=== PATIENT | male | born 1945 | race Hispanic/Latino ===

== ENCOUNTER 2017-11-29 09:40 | Inpatient (IN) | payer MEDICARE ==
[~2017-11-29 09:40] MED LIST: ALPR0.25 PO; CARV25TA77 PO; CYCL30DR OP; ESOM40CA PO; FURO40TA5 PO; LABE5VIA3 IV; LATA2.5D2 OP; LOSA100T29 PO; ONDA4AMP IJ; POTA10TA11 PO; ROSU10TA GT; ZOLP10TA2 PO
[2017-11-29] MEDS ORDERED: DEXTROSE 50%-WATER 50 ML DISP.SYRIN IV ONE ×2 (10:15→13:10)
[2017-11-29] MEDS ORDERED: DEXTROSE 10%-WATER 1,000 ML IV ONE ×2 (10:26→21:49)
[2017-11-29 10:43] LABS: BASOPHILS % (AUTO) 0.3 % (0.0-5.0); EOSINOPHILS % (AUTO) 0.8 % (0.0-8.0); HEMATOCRIT 26.7 % (42-54); MEAN CORPUSCULAR HEMOGLOBIN 32.9 pg (27.0-33.0); MEAN CORPUSCULAR HGB CONC 33.8 g/dL (32.0-36.0); MEAN CORPUSCULAR VOLUME 97.4 fL (79-99); MONOCYTES % (AUTO) 8.3 % (3.0-13.0); NEUTROPHILS % (AUTO) 75.6 % (40.0-77.0); NUCLEATED RED BLOOD CELLS 0.4 % (0.0-0.19); PLATELET COUNT (AUTO) 210 K/uL (130-400); RED BLOOD CELL COUNT(AUTO) 2.74 MIL/uL (4.50-6.20); RED CELL DISTRIBUTION WIDTH 19.9 % (11.0-15.5)
[2017-11-29 10:44] LABS: APPEARANCE,URINE Clear (CLEAR); BILIRUBIN,URINE Negative (NEGATIVE); COLOR,URINE Yellow (YELLOW); GLUCOSE, URINE (UA) Negative (NEGATIVE); KETONES,URINE Negative (NEGATIVE); LEUKOCYTE ESTERASE ,URINE Negative (NEGATIVE); NITRATE,URINE Negative (NEGATIVE); OCCULT BLOOD,URINE Negative (NEGATIVE); PROTEIN,URINE Negative (NEGATIVE); UROBILINOGEN,URINE 0.2 mg/dL (0.2-1.0)
[2017-11-29 10:53] LABS: CREATININE 2.3 mg/dL (0.5-1.5); POTASSIUM 4.2 mmol/L (3.5-5.1)
[2017-11-29 10:58] LABS: ALBUMIN 2.4 g/dL (3.5-5.0); BILIRUBIN,TOTAL 0.3 mg/dL (0.2-1.0); TOTAL PROTEIN, SERUM 5.3 g/dL (6.0-8.3)
[2017-11-29] MEDS ORDERED: SODIUM CHLORIDE 0.9% 1000ML 2,000 ML IV ONE (11:34)
[2017-11-29] MEDS ORDERED: CEFTRIAXONE SODIUM 1 GM ONE (11:34)
[2017-11-29] MEDS ORDERED: SODIUM CHLORIDE 0.9% 50 ML IV ONE (11:35)
[2017-11-29 12:47] LABS: PARTIAL THROMBOPLASTIN TIME 29.2 SEC (26.3-35.5)
[2017-11-29 12:56] LABS: INR 1.08 (0.85-1.15); PROTHROMBIN TIME 11.3 SEC (9.6-11.6)
[2017-11-29 21:30] VITALS: BP 134/84
[2017-11-29] MEDS ORDERED: DEXTROSE 10%-WATER 1,000 ML IV SCH (22:00)
[2017-11-29 23:31] VITALS: BP 116/72
[2017-11-30 03:53] VITALS: BP 134/64
[2017-11-30] MEDS ORDERED: PRED5TAB PO (04:19)
[2017-11-30] MEDS ORDERED: MULT-264 PO (04:19)
[2017-11-30] MEDS ORDERED: ASCO-360 PO (04:19)
[2017-11-30] MEDS ORDERED: ZINC220C6 PO (04:19)
[2017-11-30] MEDS ORDERED: CARV25TA PO (04:19)
[2017-11-30] MEDS ORDERED: XALA2.5OS OU (04:19)
[2017-11-30] MEDS ORDERED: TERB250T51 PO (04:19)
[2017-11-30] MEDS ORDERED: LOSA100T29 PO (04:19)
[2017-11-30] MEDS ORDERED: ASCO500T10 PO (04:19)
[2017-11-30] MEDS ORDERED: FURO40TA5 PO (04:19)
[2017-11-30] MEDS ORDERED: FERR325T22 PO (04:19)
[2017-11-30] MEDS ORDERED: ROSU10TA PO (04:19)
[2017-11-30] MEDS ORDERED: ATOR10 PO (04:19)
[2017-11-30] MEDS ORDERED: TRAM50TA4 PO (04:19)
[2017-11-30] MEDS ORDERED: ASPI-1197 PO (04:19)
[2017-11-30] MEDS ORDERED: ZINC TABLET PO (04:19)
[2017-11-30] MEDS ORDERED: ACET325T51 PO (04:19)
[2017-11-30] MEDS ORDERED: MULT-685 PO (04:19)
[2017-11-30] MEDS ORDERED: OMEP20CA10 PO (04:19)
[2017-11-30 04:30] LABS: HEMATOCRIT 23.7 % (42-54); MEAN CORPUSCULAR HGB CONC 34.3 g/dL (32.0-36.0); MEAN CORPUSCULAR VOLUME 96.2 fL (79-99); NUCLEATED RED BLOOD CELLS 0.3 % (0.0-0.19); PLATELET COUNT (AUTO) 202 K/uL (130-400); RED BLOOD CELL COUNT(AUTO) 2.46 MIL/uL (4.50-6.20); RED CELL DISTRIBUTION WIDTH 19.6 % (11.0-15.5); WHITE BLOOD COUNT (AUTO) 12.2 K/uL (4.8-10.8)
[2017-11-30] MEDS ORDERED: TRAMADOL HCL 50 MG TABLET PO PRN (04:30)
[2017-11-30] MEDS ORDERED: ACETAMINOPHEN 325 MG TAB PO PRN ×2 (04:30)
[2017-11-30 04:47] LABS: ALBUMIN 2.2 g/dL (3.5-5.0); BILIRUBIN,TOTAL 0.3 mg/dL (0.2-1.0); CREATININE 1.8 mg/dL (0.5-1.5); TOTAL PROTEIN, SERUM 4.9 g/dL (6.0-8.3)
[2017-11-30 07:00] VITALS: BP 115/57
[2017-11-30] MEDS: ASCORBIC ACID 500 MG TAB PO SCH ×2 (08:37→20:59)
[2017-11-30] MEDS: MULTIVITAMIN WITH MINERALS TABLET PO SCH (08:37)
[2017-11-30] MEDS: ASPIRIN 81MG TAB.CHEW PO SCH (08:38)
[2017-11-30] MEDS: PANTOPRAZOLE SODIUM 40 MG TABLET.DR PO SCH (08:38)
[2017-11-30] MEDS: CARVEDILOL 25 MG TABLET PO SCH ×2 (08:38→20:59)
[2017-11-30] MEDS: FUROSEMIDE 40 MG TABLET PO SCH (08:38)
[2017-11-30] MEDS: ZINC SULFATE 220 CAPSULE PO SCH (08:39)
[2017-11-30] MEDS: FERROUS SULFATE 325 MG TABLET.DR PO SCH (08:39)
[2017-11-30] MEDS ORDERED: ASCORBATE CALCIUM 500 MG PO SCH (09:00)
[2017-11-30] MEDS ORDERED: NON-FORMULARY MEDICATION 1 EACH (Rosuvastatin Calcium (Crestor) 10 MG) PO SCH (09:00)
[2017-11-30] MEDS ORDERED: PREDNISONE 5 MG TABLET PO SCH (09:00)
[2017-11-30] MEDS ORDERED: Terbinafine HCl 250 MG PO SCH (09:00)
[2017-11-30] MEDS ORDERED: ZINC PO SCH (09:00)
[2017-11-30] MEDS ORDERED: MULTIVITAMIN PO SCH (09:00)
[2017-11-30 11:19] VITALS: BP 108/52
[2017-11-30] MEDS: LOSARTAN 100 MG TABLET PO SCH (12:00)
[2017-11-30 15:46] VITALS: BP 91/48
[2017-11-30 19:52] VITALS: BP 101/51
[2017-11-30] MEDS ORDERED: ATORVASTATIN CALCIUM 10 MG TABLET PO SCH (21:00)
[2017-11-30] MEDS ORDERED: LATANOPROST 2.5 ML DROPS OU SCH (21:00)
[2017-11-30] MEDS ORDERED: ZOLPIDEM TARTRATE 5 MG TAB PO SCH (21:00)
[2017-11-30 23:53] VITALS: BP 114/57
[2017-12-01 03:55] VITALS: BP 124/59
[2017-12-01 07:00] VITALS: BP 137/66
[2017-12-01] MEDS: ZINC SULFATE 220 CAPSULE PO SCH (08:40)
[2017-12-01] MEDS: FERROUS SULFATE 325 MG TABLET.DR PO SCH (08:40)
[2017-12-01] MEDS: FUROSEMIDE 40 MG TABLET PO SCH (08:40)
[2017-12-01] MEDS: PANTOPRAZOLE SODIUM 40 MG TABLET.DR PO SCH (08:40)
[2017-12-01] MEDS: LOSARTAN 100 MG TABLET PO SCH (08:40)
[2017-12-01] MEDS: ASPIRIN 81MG TAB.CHEW PO SCH (08:40)
[2017-12-01] MEDS: ASCORBIC ACID 500 MG TAB PO SCH (08:40)
[2017-12-01] MEDS: CARVEDILOL 25 MG TABLET PO SCH (08:40)
[2017-12-01] MEDS: MULTIVITAMIN WITH MINERALS TABLET PO SCH (08:40)
[2017-12-01 11:21] VITALS: BP 122/59
[2017-12-01 16:00] VITALS: BP 120/70
== END 2017-12-01 18:20 | DRG 637 ==
LOC: EDH 09:40 → EDHIP 13:22 → 3DH 21:05
PROVIDERS: ADMIT Internal Medicine; ATTEND Internal Medicine
DX: E11.649 Type 2 diabetes mellitus with hypoglycemia without coma (principal); L89.603 Pressure ulcer of unspecified heel, stage 3; E46 Unspecified protein-calorie malnutrition; E11.22 Type 2 diabetes mellitus with diabetic chronic kidney disease; E11.65 Type 2 diabetes mellitus with hyperglycemia; D72.829 Elevated white blood cell count, unspecified; E78.5 Hyperlipidemia, unspecified; E86.0 Dehydration; F03.90 Unspecified dementia, unspecified severity, without behavioral disturbance, psychotic disturbance, mood disturbance, and anxiety; N18.3 Chronic kidney disease, stage 3 (moderate); M19.90 Unspecified osteoarthritis, unspecified site; I12.9 Hypertensive chronic kidney disease with stage 1 through stage 4 chronic kidney disease, or unspecified chronic kidney disease; E87.6 Hypokalemia
CPT/HCPCS: 36415; 80053; 81003; 82948; 83605; 85025; 85027; 85610; 85730; 87040; J0696; J3490; J7030; J7070

== ENCOUNTER 2017-12-15 14:12 | Inpatient (IN) | payer MEDICARE ==
[~2017-12-15] VITALS: Ht 170.2 cm; Wt 63.5 kg
[~2017-12-15 14:12] MED LIST changes: +ACET325T51 PO; -ALPR0.25 PO; +ASCO-360 PO; +ASCO500T10 PO; +ASPI-1197 PO; +ATOR10 PO; +CARV25TA PO; -CARV25TA77 PO; -CYCL30DR OP; -ESOM40CA PO; +FERR325T22 PO; -LABE5VIA3 IV; -LATA2.5D2 OP; +MULT-264 PO; +MULT-685 PO; +OMEP20CA10 PO; -ONDA4AMP IJ; -POTA10TA11 PO; +PRED5TAB PO; -ROSU10TA GT; +ROSU10TA PO; +TERB250T51 PO; +TRAM50TA4 PO; +XALA2.5OS OU; +ZINC TABLET PO; +ZINC220C6 PO
[2017-12-15 15:35] LABS: EOSINOPHILS % (AUTO) 0.1 % (0.0-8.0); HEMATOCRIT 25.7 % (42-54); LYMPHOCYTES % (AUTO) 9.6 % (21.0-51.0); MEAN CORPUSCULAR HEMOGLOBIN 32.7 pg (27.0-33.0); MEAN CORPUSCULAR HGB CONC 33.4 g/dL (32.0-36.0); NEUTROPHILS % (AUTO) 84.3 % (40.0-77.0); NUCLEATED RED BLOOD CELLS 0.3 % (0.0-0.19); PLATELET COUNT (AUTO) 176 K/uL (130-400); RED BLOOD CELL COUNT(AUTO) 2.62 MIL/uL (4.50-6.20); WHITE BLOOD COUNT (AUTO) 9.6 K/uL (4.8-10.8)
[2017-12-15 15:44] LABS: CREATININE 2.1 mg/dL (0.5-1.5); POTASSIUM 5.1 mmol/L (3.5-5.1)
[2017-12-15 15:49] LABS: ALBUMIN 2.7 g/dL (3.5-5.0); BILIRUBIN,TOTAL 0.4 mg/dL (0.2-1.0); TOTAL PROTEIN, SERUM 5.8 g/dL (6.0-8.3)
[2017-12-15 16:01] LABS: CREATINE KINASE MB 1.4 ng/mL (0.5-3.6); CREATINE KINASE, TOTAL 39 U/L (21-232); MYOGLOBIN 91 ng/mL (10-92); TROPONIN I < 0.04 ng/mL (0.00-0.06)
[2017-12-15 16:13] LABS: BILIRUBIN,URINE Negative (NEGATIVE); COLOR,URINE Yellow (YELLOW); GLUCOSE, URINE (UA) 250 mg/dL (NEGATIVE); KETONES,URINE Negative (NEGATIVE); LEUKOCYTE ESTERASE ,URINE Trace (NEGATIVE); NITRATE,URINE Negative (NEGATIVE); OCCULT BLOOD,URINE Negative (NEGATIVE); PROTEIN,URINE Negative (NEGATIVE); UROBILINOGEN,URINE 0.2 mg/dL (0.2-1.0)
[2017-12-15 16:18] LABS: APPEARANCE,URINE CLEAR (CLEAR)
[2017-12-15 16:27] LABS: BACTERIA,URINE Rare /HPF (None Seen); RBC,URINE None Seen /HPF (0-1); SQUAMOUS EPITHELIAL CELL,UR 0-2 /LPF (0-2); WBC,URINE 0-1 /HPF (0-1)
[2017-12-15] MEDS ORDERED: SODIUM CHLORIDE 0.9% 1000ML 1,000 ML IV ONE (16:58)
[2017-12-16] MEDS: SODIUM CHLORIDE 0.9% 1000ML 1,000 ML IV SCH (01:53)
[2017-12-16] MEDS ORDERED: ONDANSETRON HCL 4 MG/2 ML VIAL IV PRN (02:00)
[2017-12-16] MEDS ORDERED: HYDRALAZINE HCL 20 MG/ML VIAL IV PRN (02:00)
[2017-12-16] MEDS ORDERED: ACETAMINOPHEN 325 MG TAB PO PRN (02:00)
[2017-12-16 11:56] LABS: CREATININE 1.6 mg/dL (0.5-1.5); POTASSIUM 4.4 mmol/L (3.5-5.1)
[2017-12-16 22:25] VITALS: BP 123/73
[2017-12-16 23:53] VITALS: BP 122/73
[2017-12-17] VITALS (8 sets, daily range): BP systolic 114–137; BP diastolic 64–79
[2017-12-17 04:33] LABS: EOSINOPHILS % (AUTO) 1.4 % (0.0-8.0); HEMATOCRIT 26.8 % (42-54); LYMPHOCYTES % (AUTO) 29.2 % (21.0-51.0); MEAN CORPUSCULAR HEMOGLOBIN 32.6 pg (27.0-33.0); MEAN CORPUSCULAR HGB CONC 33.5 g/dL (32.0-36.0); MEAN CORPUSCULAR VOLUME 97.3 fL (79-99); NEUTROPHILS % (AUTO) 60.4 % (40.0-77.0); NUCLEATED RED BLOOD CELLS 0.3 % (0.0-0.19); PLATELET COUNT (AUTO) 194 K/uL (130-400); RED BLOOD CELL COUNT(AUTO) 2.76 MIL/uL (4.50-6.20); RED CELL DISTRIBUTION WIDTH 23.5 % (11.0-15.5); WHITE BLOOD COUNT (AUTO) 8.6 K/uL (4.8-10.8)
[2017-12-17 04:41] LABS: CREATININE 1.8 mg/dL (0.5-1.5); POTASSIUM 4.2 mmol/L (3.5-5.1)
[2017-12-17] MEDS: PANTOPRAZOLE SODIUM 40 MG TABLET.DR PO SCH ×2 (09:00→11:35)
[2017-12-17] MEDS: SODIUM CHLORIDE 0.9% 1000ML 1,000 ML IV SCH (11:35)
[2017-12-17] MEDS: ATORVASTATIN CALCIUM 20 MG TABLET PO SCH (21:10)
[2017-12-17] MEDS: LATANOPROST 2.5 ML DROPS OU SCH (21:11)
[2017-12-18 03:20] VITALS: BP 125/72
[2017-12-18 08:25] VITALS: BP 135/88
[2017-12-18 08:26] VITALS: BP 145/95
[2017-12-18] MEDS ORDERED: PIOG45TA17 PO (09:25)
[2017-12-18] MEDS ORDERED: ERGO500014 PO (09:25)
[2017-12-18] MEDS ORDERED: BENZ-51 PO (09:25)
[2017-12-18] MEDS: PANTOPRAZOLE SODIUM 40 MG TABLET.DR PO SCH (11:03)
[2017-12-18] MEDS: ASPIRIN 81MG TAB.CHEW PO SCH (11:03)
[2017-12-18] MEDS: ZINC SULFATE 220 CAPSULE PO SCH (11:03)
[2017-12-18] MEDS: ACETAMINOPHEN-CODEINE 300/30MG TAB PO PRN ×2 (11:06→19:25)
[2017-12-18 12:25] VITALS: BP 140/75
[2017-12-18 16:42] VITALS: BP 145/79
[2017-12-18 20:00] VITALS: BP_SYST 122; BP_SYST 98; BP_DIAS 65; BP_DIAS 74
[2017-12-18] MEDS: LATANOPROST 2.5 ML DROPS OU SCH (20:28)
[2017-12-18] MEDS: ATORVASTATIN CALCIUM 20 MG TABLET PO SCH (20:28)
[2017-12-19] VITALS (8 sets, daily range): BP systolic 110–131; BP diastolic 66–82
[2017-12-19] MEDS: ASPIRIN 81MG TAB.CHEW PO SCH (09:36)
[2017-12-19] MEDS: PANTOPRAZOLE SODIUM 40 MG TABLET.DR PO SCH (09:36)
[2017-12-19] MEDS: ZINC SULFATE 220 CAPSULE PO SCH (09:45)
[2017-12-19] MEDS: SODIUM CHLORIDE 0.9% 1000ML 1,000 ML IV SCH ×2 (11:15→23:26)
[2017-12-19] MEDS: ACETAMINOPHEN-CODEINE 300/30MG TAB PO PRN (13:46)
[2017-12-19] MEDS: LATANOPROST 2.5 ML DROPS OU SCH (20:10)
[2017-12-19] MEDS: CARVEDILOL 25 MG TABLET PO SCH (20:10)
[2017-12-19] MEDS: ATORVASTATIN CALCIUM 20 MG TABLET PO SCH (20:10)
[2017-12-20 03:56] VITALS: BP 110/71
[2017-12-20 07:00] VITALS: BP 130/69
[2017-12-20] MEDS: CARVEDILOL 25 MG TABLET PO SCH ×2 (10:13→20:25)
[2017-12-20] MEDS: PANTOPRAZOLE SODIUM 40 MG TABLET.DR PO SCH (10:13)
[2017-12-20] MEDS: ASPIRIN 81MG TAB.CHEW PO SCH (10:22)
[2017-12-20] MEDS: ZINC SULFATE 220 CAPSULE PO SCH (10:22)
[2017-12-20 11:00] VITALS: BP 138/88
[2017-12-20] MEDS ORDERED: LACTULOSE 20 GM/30 ML UDCUP PO PRN (13:15)
[2017-12-20 15:38] VITALS: BP 160/87
[2017-12-20 15:44] VITALS: BP 115/63
[2017-12-20 20:01] VITALS: BP 126/60
[2017-12-20] MEDS: ATORVASTATIN CALCIUM 20 MG TABLET PO SCH (20:25)
[2017-12-20] MEDS: ACETAMINOPHEN-CODEINE 300/30MG TAB PO PRN (20:25)
[2017-12-20] MEDS: SODIUM CHLORIDE 0.9% 1000ML 1,000 ML IV SCH (20:25)
[2017-12-20] MEDS: LATANOPROST 2.5 ML DROPS OU SCH (20:26)
[2017-12-21] VITALS (8 sets, daily range): BP systolic 108–139; BP diastolic 61–86
[2017-12-21] MEDS: SODIUM CHLORIDE 0.9% 1000ML 1,000 ML IV SCH ×2 (03:15→22:09)
[2017-12-21] MEDS: ZINC SULFATE 220 CAPSULE PO SCH (08:49)
[2017-12-21] MEDS: PANTOPRAZOLE SODIUM 40 MG TABLET.DR PO SCH (08:49)
[2017-12-21] MEDS: CARVEDILOL 25 MG TABLET PO SCH ×2 (08:49→22:10)
[2017-12-21] MEDS: ASPIRIN 81MG TAB.CHEW PO SCH (08:50)
[2017-12-21] MEDS: ACETAMINOPHEN-CODEINE 300/30MG TAB PO PRN ×3 (09:06→23:42)
[2017-12-21] MEDS: ATORVASTATIN CALCIUM 20 MG TABLET PO SCH (22:09)
[2017-12-21] MEDS: LATANOPROST 2.5 ML DROPS OU SCH (22:10)
[2017-12-22 03:35] VITALS: BP 110/67
[2017-12-22] MEDS: SODIUM CHLORIDE 0.9% 1000ML 1,000 ML IV SCH ×2 (04:54→20:32)
[2017-12-22 07:00] VITALS: BP 135/67
[2017-12-22] MEDS: ACETAMINOPHEN-CODEINE 300/30MG TAB PO PRN ×2 (07:00→20:31)
[2017-12-22] MEDS: ASPIRIN 81MG TAB.CHEW PO SCH (09:02)
[2017-12-22] MEDS: CARVEDILOL 25 MG TABLET PO SCH ×2 (09:02→20:31)
[2017-12-22] MEDS: PANTOPRAZOLE SODIUM 40 MG TABLET.DR PO SCH (09:02)
[2017-12-22] MEDS: ZINC SULFATE 220 CAPSULE PO SCH (09:02)
[2017-12-22 11:00] VITALS: BP 116/63
[2017-12-22 16:04] VITALS: BP 109/61
[2017-12-22 19:35] VITALS: BP 129/70
[2017-12-22] MEDS: LATANOPROST 2.5 ML DROPS OU SCH (20:32)
[2017-12-22] MEDS: ATORVASTATIN CALCIUM 20 MG TABLET PO SCH (20:32)
[2017-12-22 23:15] VITALS: BP 126/64
[2017-12-23] VITALS (12 sets, daily range): BP systolic 82–147; BP diastolic 46–83
[2017-12-23 07:44] LABS: BASOPHILS % (AUTO) 1.7 % (0.0-5.0); EOSINOPHILS % (AUTO) 3.4 % (0.0-8.0); HEMATOCRIT 23.8 % (42-54); LYMPHOCYTES % (AUTO) 25.7 % (21.0-51.0); MEAN CORPUSCULAR HEMOGLOBIN 33.1 pg (27.0-33.0); MEAN CORPUSCULAR HGB CONC 33.3 g/dL (32.0-36.0); MEAN CORPUSCULAR VOLUME 99.4 fL (79-99); MONOCYTES % (AUTO) 9.6 % (3.0-13.0); NEUTROPHILS % (AUTO) 59.6 % (40.0-77.0); PLATELET COUNT (AUTO) 152 K/uL (130-400); RED CELL DISTRIBUTION WIDTH 22.8 % (11.0-15.5); WHITE BLOOD COUNT (AUTO) 6.8 K/uL (4.8-10.8)
[2017-12-23 07:52] LABS: PROTHROMBIN TIME 10.5 SEC (9.6-11.6)
[2017-12-23 08:04] LABS: CREATININE 1.3 mg/dL (0.5-1.5); POTASSIUM 4.9 mmol/L (3.5-5.1)
[2017-12-23] MEDS: CARVEDILOL 25 MG TABLET PO SCH ×2 (08:29→21:00)
[2017-12-23] MEDS: SODIUM CHLORIDE 0.9% 1000ML 1,000 ML IV SCH ×3 (08:30→09:53)
[2017-12-23] MEDS: PANTOPRAZOLE SODIUM 40 MG TABLET.DR PO SCH (09:00)
[2017-12-23] MEDS: ASPIRIN 81MG TAB.CHEW PO SCH (09:00)
[2017-12-23] MEDS: ZINC SULFATE 220 CAPSULE PO SCH (09:00)
[2017-12-23] MEDS: ACETAMINOPHEN-CODEINE 300/30MG TAB PO PRN (09:48)
[2017-12-23] MEDS ORDERED: DiphenhydrAMINE HCL 50 MG/ML VIAL IV SCH (11:00)
[2017-12-23] MEDS ORDERED: BIVALIRUDIN 250 MG/VIAL IV ONE (19:43)
[2017-12-23] MEDS ORDERED: HEPARIN SODIUM 1000UNIT/ML 10ML VIAL ONE (19:44)
[2017-12-23] MEDS ORDERED: MIDAZOLAM HCL 1 MG/ML 2ML VIAL ONE (19:44)
[2017-12-23] MEDS ORDERED: NITROGLYCERIN 5 MG/ML 10 ML VIAL IV ONE (19:44)
[2017-12-23] MEDS ORDERED: ISOVUE-300 100 ML VIAL IV ONE ×2 (19:44→19:49)
[2017-12-23] MEDS ORDERED: LIDOCAINE HCL 2% 20ML ONE (19:44)
[2017-12-23] MEDS ORDERED: DiphenhydrAMINE HCL 50 MG/ML VIAL ONE (19:47)
[2017-12-23] MEDS ORDERED: FENTANYL CITRATE PF 50 MCG/1 ML 2ML VIAL ONE (20:22)
[2017-12-23] MEDS: ATORVASTATIN CALCIUM 20 MG TABLET PO SCH (21:00)
[2017-12-23] MEDS: LATANOPROST 2.5 ML DROPS OU SCH (21:00)
[2017-12-23] MEDS ORDERED: SODIUM CHLORIDE 0.9% 1000ML 1,000 ML IV SCH (21:45)
[2017-12-23] MEDS ORDERED: SODIUM CHLORIDE 0.9% 1000ML 1,000 ML IV ONE (23:08)
[2017-12-24] VITALS (10 sets, daily range): BP systolic 105–130; BP diastolic 53–68
[2017-12-24] MEDS: ACETAMINOPHEN-CODEINE 300/30MG TAB PO PRN ×4 (02:38→23:38)
[2017-12-24 05:00] LABS: MEAN CORPUSCULAR HEMOGLOBIN 35.3 pg (27.0-33.0); MEAN CORPUSCULAR HGB CONC 35.7 g/dL (32.0-36.0); MEAN CORPUSCULAR VOLUME 98.9 fL (79-99); NUCLEATED RED BLOOD CELLS 0.1 % (0.0-0.19); PLATELET COUNT (AUTO) 134 K/uL (130-400); RED BLOOD CELL COUNT(AUTO) 1.86 MIL/uL (4.50-6.20); RED CELL DISTRIBUTION WIDTH 22.8 % (11.0-15.5); WHITE BLOOD COUNT (AUTO) 6.9 K/uL (4.8-10.8)
[2017-12-24 05:12] LABS: HEMATOCRIT 18.4 % (42-54)
[2017-12-24 05:16] LABS: CREATININE 1.1 mg/dL (0.5-1.5); POTASSIUM 4.1 mmol/L (3.5-5.1)
[2017-12-24 06:03] LABS: MEAN CORPUSCULAR HEMOGLOBIN 34.8 pg (27.0-33.0); MEAN CORPUSCULAR HGB CONC 35.1 g/dL (32.0-36.0); MEAN CORPUSCULAR VOLUME 99.2 fL (79-99); PLATELET COUNT (AUTO) 140 K/uL (130-400); RED CELL DISTRIBUTION WIDTH 22.7 % (11.0-15.5); WHITE BLOOD COUNT (AUTO) 7.4 K/uL (4.8-10.8)
[2017-12-24 06:05] LABS: HEMATOCRIT 19.8 % (42-54)
[2017-12-24] MEDS: ZINC SULFATE 220 CAPSULE PO SCH (10:17)
[2017-12-24] MEDS: ASPIRIN 81MG TAB.CHEW PO SCH (10:19)
[2017-12-24] MEDS: PANTOPRAZOLE SODIUM 40 MG TABLET.DR PO SCH (10:19)
[2017-12-24] MEDS: CARVEDILOL 25 MG TABLET PO SCH ×2 (10:19→20:44)
[2017-12-24] MEDS: ATORVASTATIN CALCIUM 20 MG TABLET PO SCH (20:44)
[2017-12-24] MEDS: LATANOPROST 2.5 ML DROPS OU SCH (20:45)
[2017-12-25] VITALS (7 sets, daily range): BP systolic 92–141; BP diastolic 46–74
[2017-12-25 04:06] LABS: MEAN CORPUSCULAR HEMOGLOBIN 33.5 pg (27.0-33.0); MEAN CORPUSCULAR VOLUME 98.5 fL (79-99); PLATELET COUNT (AUTO) 134 K/uL (130-400); RED BLOOD CELL COUNT(AUTO) 1.76 MIL/uL (4.50-6.20); RED CELL DISTRIBUTION WIDTH 22.6 % (11.0-15.5); WHITE BLOOD COUNT (AUTO) 6.3 K/uL (4.8-10.8)
[2017-12-25 04:24] LABS: HEMATOCRIT 17.3 % (42-54)
[2017-12-25 04:32] LABS: BILIRUBIN,TOTAL 0.3 mg/dL (0.2-1.0); CREATININE 1.6 mg/dL (0.5-1.5); POTASSIUM 4.3 mmol/L (3.5-5.1); TOTAL PROTEIN, SERUM 4.8 g/dL (6.0-8.3)
[2017-12-25] MEDS: ACETAMINOPHEN-CODEINE 300/30MG TAB PO PRN ×2 (05:31→15:52)
[2017-12-25] MEDS ORDERED: HONEY 1 APPL/ML TUBE TP SCH (09:00)
[2017-12-25] MEDS: ZINC SULFATE 220 CAPSULE PO SCH (09:16)
[2017-12-25] MEDS: PANTOPRAZOLE SODIUM 40 MG TABLET.DR PO SCH (09:17)
[2017-12-25] MEDS: CARVEDILOL 25 MG TABLET PO SCH ×2 (09:17→19:59)
[2017-12-25] MEDS ORDERED: SODIUM CHLORIDE 0.9% 500ML 500 ML IV ONE (12:19)
[2017-12-25] MEDS: ASPIRIN 81MG TAB.CHEW PO SCH (13:00)
[2017-12-25] MEDS: ATORVASTATIN CALCIUM 20 MG TABLET PO SCH (20:00)
[2017-12-25] MEDS: LATANOPROST 2.5 ML DROPS OU SCH (20:02)
[2017-12-25 20:57] LABS: HEMATOCRIT 25.4 % (42-54)
== END 2017-12-26 00:40 | DRG 264 ==
LOC: EDH 14:12 → EDHIP 18:02 → 3BH 12-16 20:55
PROVIDERS: ADMIT Family Medicine; ATTEND Family Medicine
PROC: 0JBR0ZZ Excision of Left Foot Subcutaneous Tissue and Fascia, Open Approach (ICD-10-PCS; 2017-12-18)
PROC: 0JBQ0ZZ Excision of Right Foot Subcutaneous Tissue and Fascia, Open Approach (ICD-10-PCS; 2017-12-18)
PROC: 30233N1 Transfusion of Nonautologous Red Blood Cells into Peripheral Vein, Percutaneous Approach (ICD-10-PCS; 2017-12-18)
PROC: B41F1ZZ Fluoroscopy of Right Lower Extremity Arteries using Low Osmolar Contrast (ICD-10-PCS; principal; 2017-12-23)
PROC: B41D1ZZ Fluoroscopy of Aorta and Bilateral Lower Extremity Arteries using Low Osmolar Contrast (ICD-10-PCS; 2017-12-23)
DX: E11.51 Type 2 diabetes mellitus with diabetic peripheral angiopathy without gangrene (principal); N17.0 Acute kidney failure with tubular necrosis; L97.419 Non-pressure chronic ulcer of right heel and midfoot with unspecified severity; L97.429 Non-pressure chronic ulcer of left heel and midfoot with unspecified severity; E44.1 Mild protein-calorie malnutrition; E11.621 Type 2 diabetes mellitus with foot ulcer; E78.5 Hyperlipidemia, unspecified; I10 Essential (primary) hypertension; G90.8 Other disorders of autonomic nervous system; E11.622 Type 2 diabetes mellitus with other skin ulcer; E11.65 Type 2 diabetes mellitus with hyperglycemia; F03.90 Unspecified dementia, unspecified severity, without behavioral disturbance, psychotic disturbance, mood disturbance, and anxiety; I70.209 Unspecified atherosclerosis of native arteries of extremities, unspecified extremity; Z85.038 Personal history of other malignant neoplasm of large intestine; Z86.74 Personal history of sudden cardiac arrest; Z93.3 Colostomy status; Z68.21 Body mass index [BMI] 21.0-21.9, adult
CPT/HCPCS: 36247; 36415; 36430; 70450; 73630; 73718; 75710; 75774; 80048; 80053; 81001; 82270; 82550; 82553; 82948; 83874; 84484; 85025; 85027; 85610; 85730; 86850; 86900; 86901; 86922; 93005; 93306; 93880; 93925; 99152; 99153; C1760; C1769; C1893; C1894; J0583; J1200; J1644; J2250; J3010; J3490; J7030; J7040; P9016; Q9967

== ENCOUNTER → 2018-11-19 | Outpatient (CLI) | payer MEDICARE ==
[~2018-11-19] MED LIST changes: -ACET325T51 PO; -ASCO-360 PO; -ASCO500T10 PO; -FERR325T22 PO; -FURO40TA5 PO; -LOSA100T29 PO; -MULT-264 PO; -MULT-685 PO; -OMEP20CA10 PO; -PRED5TAB PO; -ROSU10TA PO; -TERB250T51 PO; -TRAM50TA4 PO; -ZINC TABLET PO; -ZINC220C6 PO; -ZOLP10TA2 PO
== END | disposition home or self-care (01) ==
LOC: OIH 11:31
PROVIDERS: ATTEND Internal Medicine
DX: R91.8 Other nonspecific abnormal finding of lung field (principal); J18.0 Bronchopneumonia, unspecified organism; J20.9 Acute bronchitis, unspecified
CPT/HCPCS: 71046